=== PATIENT | male | born 1975 | race Two or more races ===

== ENCOUNTER 2024-08-14 11:20 | Inpatient (IN) | payer OTHER ==
[~2024-08-14] VITALS: Ht 188 cm; Wt 112.7 kg
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
[2024-08-14 12:17] LABS: Chloride 102 mmol/L (98-107); Potassium 4.1 mmol/L (3.5-5.1); Sodium 133 mmol/L (136-145)
[2024-08-14 12:18] LABS: Calcium 8.7 mg/dL (8.7-10.4); Carbon Dioxide 25 mmol/L (20-31); Hematocrit 37.8 % (41.0-53.0); Hemoglobin 13.2 g/dL (13.5-17.5); Mean Corpuscular Hemoglobin 33.3 pg (28.0-32.0); Mean Corpuscular Volume 95.3 fL (80.0-100.0); Nucleated Red Blood Cells % 0.2 %
[2024-08-14 12:19] LABS: Anion Gap 6 (5-15)
[2024-08-14 12:23] LABS: BUN/Creatinine Ratio 11.1 (10.0-20.0); Glucose 96 mg/dL (74-106)
[2024-08-14 12:24] LABS: Blood Urea Nitrogen 8 mg/dL (9-23)
[2024-08-14] MEDS: SODIUM CHLORIDE 0.9% 1,000 ML IV ONE (12:33)
[2024-08-14] MEDS: ONDANSETRON HCL 4 MG/2 ML VIAL IV ONE (12:33)
[2024-08-14] MEDS: MORPHINE SULFATE 4 MG/ML SYR/VIAL IV ONE (12:33)
--- NOTE | 2024-08-14 12:55 | DVH ---
CLINICAL INFORMATION: 48 years old, Male; syncope. TECHNIQUE: Axial imaging was obtained through the brain without contrast. Coronal and sagittal reform atted images were obtained, reviewed, and stored. Images were reviewed in brain and bone windows. Al l CT scans at this medical facility are performed using dose modulation techniques as appropriate to a performed exam including the following: Automated exposure control was utilized; adjustment of the MA and/or KV according to patient size; and use of iterative reconstruction technique. CTDIvol = 53.2 9 mGy DLP = 1069.02 mGy-cm COMPARISON: None FINDINGS: There is no acute intracranial hemorrhage. No mass effect or midline shift. The ventricles and sulci are within normal limits in size for age. Basal cisterns are patent. The calvarium is unre markable. Mild mucosal thickening and areas of partial opacification of the paranasal sinuses. Mastoi d air cells are clear. IMPRESSION: 1. No CT evidence of acute intracranial abnormality. 2. Nonacute findings as described above.
--- NOTE | 2024-08-14 13:17 | DVH ---
EXAM: CT CERVICAL WITHOUT CONTRAST HISTORY: syncope COMPARISON: None CTDIvol 22.7 mGy, DLP 1930.5 mGy*cm. TECHNIQUE: Multiple axial CT images of the spine were obtained using bone algorithm. Axial and guerrero l reformatting was done. Bone and soft tissue windows were reviewed. FINDINGS: No evidence of definite acute fracture, spinal dislocation, or significant appearing acute subluxatio n is seen. IMPRESSION: No definite CT evidence of acute fracture or dislocation of the bony cervical spine.
--- NOTE | 2024-08-14 13:21 | DVH ---
EXAM: XY LUMBAR SPINE 3 VIEW CLINICAL INDICATION: LOW BACK PAIN TECHNIQUE: XY LUMBAR SPINE 3 VIEW Comparison: None FINDINGS/IMPRESSION: There is no evidence of acute fracture or dislocation. Postsurgical changes at L4-L5 with intervertebral disc spacers.
[2024-08-14 14:00] LABS: Urine Protein, UAD Negative (Negative)
[2024-08-14 14:14] LABS: Amphetamine Screen, Urine Neg (NEGATIVE); Barbiturate Scree,Urine Neg (NEGATIVE); Benzodiazephine Screen, Urine Neg (NEGATIVE); Cannabinoid Screen, Urine Neg (NEGATIVE); Cocaine Screen, Urine Neg (NEGATIVE); Opiate Scree,Urine Neg (NEGATIVE); Phencyclidine Screen, Urine Neg (NEGATIVE)
[2024-08-14] MEDS ORDERED: NITROGLYCERIN 0.4 MG SL TAB SL PRN (14:45)
[2024-08-14] MEDS: D5W/SOD CHL 0.45% 1,000 ML IV ONE (15:00)
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
--- NOTE | 2024-08-14 18:26 | DVHCONRES ---
Date Seen: Aug 14, 2024 Resident Creating Document: MIHIR DELGADO RESDIENT History of Present Illness This is a 48-year-old inmate male with past medical history hypertension, AFib an hepatitis-B brought to the hospital from long-term due to an episode of syncope. Per patient, he is on methadone since 5 years but recently due to long-term transfer could not feel his medicine and has been feeling dizzy, and lightheadedness since 2 days. Today, the patient was feeling more dizzy, and lightheadedness which subsequently lost consciousness. Upon waking up, he was feeling headache, and had nausea, palpitation and back pain. He denies chest pain, shortness of breaths, cough, fever or any recent sick contact. PMHx: hypertension, AFib (status post AFib in 2020) and hepatitis-C PSHx: Multiple spine surgery due to herniated disc Family history: Noncontributory Social history: Ex-smoker and methamphetamine user Home medication: Diltiazem, losartan, metoprolol and aspirin, previously patient was on Eliquis that has been stopped using 1 year back. Allergic history: No known allergy Patient seen and examined at bedside. Patient is complaining of headache, but does not have active chest pain or shortness of breathe. Allergies: Coded Allergies: NO KNOWN ALLERGIES (Unverified , 08/14/24) Current Medications Current Medications Medications (Trade) Dose Ordered Sig/Paramjit Route PRN Reason Start Time Stop Time Status Last Admin Nitroglycerin (Ntrostat Sublingual) 0.4 mg Q5MINP PRN SL FOR CHEST PAIN 08/14/24 14:45 Morphine Sulfate 2 mg Q30M PRN IV FOR CHEST PAIN 08/14/24 14:45 Tramadol HCl (Ultram) 50 mg TID PO 08/14/24 22:00 Ondansetron HCl (Zofran) 4 mg Q4HPRN PRN IV NAUSEA / VOMITING 08/14/24 17:30 Vital Signs Vital Signs Date Time Temp Pulse Resp B/P (MAP) Pulse Ox O2 Delivery O2 Flow Rate FiO2 08/14/24 16:30 60 13 150/87 (108) 96 08/14/24 12:00 Room Air* 0 21 08/14/24 12:00 97.8 97.8 Physical Exam General Appearance: Alert, Oriented X3, Cooperative, No acute distress HEENT: A small abrasion on the forehead with 2 x 2 cm swelling, PERRLA, EOMI, Mucous membrane moist/pink Respiratory: Clear to auscultation, Normal air movement Cardiovascular: Regular rate, Normal S1, Normal S2, No murmurs, no chest wall tenderness Abdominal: Normal bowel sounds, Soft, No tenderness, No hepatospenomegaly, No masses Extremities: No clubbing, No cyanosis, No edema, Normal pulses, No tenderness/swelling Skin: No rashes, No breakdown, No significant lesion Neuro: Normal gait, Normal speech, Strength at 5/5 X4 ext, Normal tone, Sensation intact, Cranial nerves 3-12 NL, Reflexes 2+ Psych/Mental Status: Mental status NL, Mood NL Labs/Diagnostic Data Labs Test 08/14/24 13:36 08/14/24 12:01 Range/Units Urine Color Light-yellow Yellow Urine Clarity Clear Clear Urine pH 7.0 5.0-9.0 Urine Specific [place] 1.010 1.001-1.035 Urine Protein Negative Negative Urine Ketones Negative Negative Urine Blood Negative Negative /uL Urine Nitrite Negative Negative Urine Bilirubin Negative Negative Urine Urobilinogen Normal Negative mg/dL Urine Leukocyte Esterase Negative Negative /uL Urine RBC <1 0 - 3 /hpf Urine Microscopic WBC < 1 0-3 /HPF Urine Squamous Epithelial Cells None seen <5 /hpf Urine Bacteria None seen None Seen /hpf Urine Glucose Normal Normal mg/dL Urine Opiates Screen Neg NEGATIVE Urine Fentanyl Screen Neg NEGATIVE Urine Barbiturates Screen Neg NEGATIVE Urine Phencyclidine Screen Neg NEGATIVE Urine Amphetamines Screen Neg NEGATIVE Urine Benzodiazepines Screen Neg NEGATIVE Urine Cocaine Screen Neg NEGATIVE Urine Cannabinoids Screen Neg NEGATIVE White Blood Count 3.6 L 4.4-10.8 10^3/uL Red Blood Count 3.97 L 4.5-5.90 10^6/uL Hemoglobin 13.2 L 13.5-17.5 g/dL Hematocrit 37.8 L 41.0-53.0 % Mean Corpuscular Volume 95.3 80.0-100.0 fL Mean Corpuscular Hemoglobin 33.3 H 28.0-32.0 pg Mean Corpuscular Hemoglobin Concent 35.0 32.0-36.0 g/dL Red Cell Distribution Width 13.9 11.8-14.3 % Platelet Count 110 L 140-450 10^3/uL Mean Platelet Volume 8.7 6.9-10.8 fL Neutrophils (%) (Auto) 54.1 37.0-80.0 % Lymphocytes (%) (Auto) 31.5 10.0-50.0 % Monocytes (%) (Auto) 10.8 0.0-12.0 % Eosinophils (%) (Auto) 2.7 0.0-7.0 % Basophils (%) (Auto) 0.9 0.0-2.0 % Neutrophils # (Auto) 2.0 1.6-8.6 10 ^3/uL Lymphocytes # (Auto) 1.1 0.4-5.4 10 ^3/uL Monocytes # (Auto) 0.4 0-1.3 10 ^3/uL Eosinophils # (Auto) 0.1 0-0.8 10 ^3/uL Basophils # (Auto) 0 0-0.2 10 ^3/uL Nucleated Red Blood Cells 0.2 % Sodium Level 133 L 136-145 mmol/L Potassium Level 4.1 3.5-5.1 mmol/L Chloride Level 102 98-107 mmol/L Carbon Dioxide Level 25 20-31 mmol/L Anion Gap 6 5-15 Blood Urea Nitrogen 8 L 9-23 mg/dL Creatinine 0.72 0.700-1.30 mg/dL Glomerular Filtration Rate Calc 111 >90 mL/min BUN/Creatinine Ratio 11.1 10.0-20.0 Serum Glucose 96 74-106 mg/dL Calcium Level 8.7 8.7-10.4 mg/dL Troponin I High Sensitivity 5 </=54 ng/L Assessment Syncope, likely vasovagal History of AFib, status post ablation Hypertension History hepatitis-C virus * EKGs shows normal sinus rhythm with no significant ST or T-wave changes * Trop I is within normal limits * Head CT scan shows no acute intracranial abnormalities Plan/recommendation (Case discussed with Dr. Maher) * Check echocardiogram * Check orthostatic vitals * Resume metoprolol, losartan and has been * In context of normal echocardiogram, the patient does not need for the cardiology workup with the moment * Patient may follow up with Cardiology on outpatient basis for event monitoring * Rest of plan per primary team Thank you for giving us the opportunity to take care of patient. Please call back if you have any question or concern. Plan discussed with: Patient, Other (RN) MIHIR DELGADO RESAURELIANO Aug 14, 2024 18:26
[2024-08-14] MEDS ORDERED: LORazepam 2MG/ML-1ML VIAL IV PRN (18:45)
[2024-08-14] MEDS: LOSARTAN POTASSIUM 50 MG TAB PO ONE (18:57)
[2024-08-14] MEDS: METOPROLOL TARTRATE 50 MG TAB PO SCH (22:00)
[2024-08-14] MEDS: MORPHINE SULFATE INJ 2 MG/ml SYRG IM ONE (23:08)
--- NOTE | 2024-08-14 23:32 | DVHINCON2 ---
Date of service: Aug 14, 2024 Referring Physician Andrew Reason for Consultation Syncope History of Present Illness This is a 48-year-old inmate male with past medical history hypertension, AFib an hepatitis-B brought to the hospital from group home due to an episode of syncope. Per patient, he is on methadone since 5 years but recently due to group home transfer could not feel his medicine and has been feeling dizzy, and lightheadedness since 2 days. Today, the patient was feeling more dizzy, and lightheadedness which subsequently lost consciousness. Upon waking up, he was feeling headache, and had nausea, palpitation and back pain. He denies chest pain, shortness of breaths, cough, fever or any recent sick contact. Patient is complaining of headache, but does not have active chest pain or shortness of breathe. EKGs shows normal sinus rhythm with no significant ST or T-wave changes. Trop I is within normal limits. Head CT scan shows no acute intracranial abnormalities. Patient was admitted to the hospital. I am asked to consult on this patient. Past Medical History hypertension, AFib (status post AFib in 2020) and hepatitis-C Past Surgical History Multiple spine surgery due to herniated disc Allergies: Coded Allergies: NO KNOWN ALLERGIES (Unverified , 08/14/24) Current Medications Current Medications Medications (Trade) Dose Ordered Sig/Paramjit Route PRN Reason Start Time Stop Time Status Last Admin Nitroglycerin (Ntrostat Sublingual) 0.4 mg Q5MINP PRN SL FOR CHEST PAIN 08/14/24 14:45 Morphine Sulfate 2 mg Q30M PRN IV FOR CHEST PAIN 08/14/24 14:45 Tramadol HCl (Ultram) 50 mg TID PO 08/14/24 22:00 08/14/24 22:10 Ondansetron HCl (Zofran) 4 mg Q4HPRN PRN IV NAUSEA / VOMITING 08/14/24 17:30 Metoprolol Tartrate (Lopressor Tablet) 100 mg BID PO 08/14/24 22:00 Losartan Potassium (Cozaar Tablet) 50 mg DAILY PO 08/15/24 10:00 Aspirin 81 mg DAILY PO 08/15/24 10:00 Lorazepam (Ativan Inj) 1 mg ONCE PRN IV MRI 08/14/24 18:45 Vital Signs Vital Signs Date Time Temp Pulse Resp B/P (MAP) Pulse Ox O2 Delivery O2 Flow Rate FiO2 08/14/24 23:08 65 20 131/84 08/14/24 19:35 98.5 98 98.5 08/14/24 12:00 Room Air* 0 21 Physical Exam GENERAL: Alert and oriented x 3. No acute distress. EYES: PERRL, EOMI. Anicteric. HENT: Moist mucous membranes, small abrasion on the forehead with 2 x 2 cm swelling. LUNGS: Clear to auscultation bilaterally. CARDIOVASCULAR: Regular rate and rhythm. ABDOMEN: Soft, non-tender and non-distended. EXTREMITIES: No edema. NEUROLOGIC: No focal neurological deficits. SKIN: Warm, dry. Labs/Diagnostic Data Labs Test 08/14/24 13:36 08/14/24 12:01 Range/Units Urine Color Light-yellow Yellow Urine Clarity Clear Clear Urine pH 7.0 5.0-9.0 Urine Specific [place] 1.010 1.001-1.035 Urine Protein Negative Negative Urine Ketones Negative Negative Urine Blood Negative Negative /uL Urine Nitrite Negative Negative Urine Bilirubin Negative Negative Urine Urobilinogen Normal Negative mg/dL Urine Leukocyte Esterase Negative Negative /uL Urine RBC <1 0 - 3 /hpf Urine Microscopic WBC < 1 0-3 /HPF Urine Squamous Epithelial Cells None seen <5 /hpf Urine Bacteria None seen None Seen /hpf Urine Glucose Normal Normal mg/dL Urine Opiates Screen Neg NEGATIVE Urine Fentanyl Screen Neg NEGATIVE Urine Barbiturates Screen Neg NEGATIVE Urine Phencyclidine Screen Neg NEGATIVE Urine Amphetamines Screen Neg NEGATIVE Urine Benzodiazepines Screen Neg NEGATIVE Urine Cocaine Screen Neg NEGATIVE Urine Cannabinoids Screen Neg NEGATIVE White Blood Count 3.6 L 4.4-10.8 10^3/uL Red Blood Count 3.97 L 4.5-5.90 10^6/uL Hemoglobin 13.2 L 13.5-17.5 g/dL Hematocrit 37.8 L 41.0-53.0 % Mean Corpuscular Volume 95.3 80.0-100.0 fL Mean Corpuscular Hemoglobin 33.3 H 28.0-32.0 pg Mean Corpuscular Hemoglobin Concent 35.0 32.0-36.0 g/dL Red Cell Distribution Width 13.9 11.8-14.3 % Platelet Count 110 L 140-450 10^3/uL Mean Platelet Volume 8.7 6.9-10.8 fL Neutrophils (%) (Auto) 54.1 37.0-80.0 % Lymphocytes (%) (Auto) 31.5 10.0-50.0 % Monocytes (%) (Auto) 10.8 0.0-12.0 % Eosinophils (%) (Auto) 2.7 0.0-7.0 % Basophils (%) (Auto) 0.9 0.0-2.0 % Neutrophils # (Auto) 2.0 1.6-8.6 10 ^3/uL Lymphocytes # (Auto) 1.1 0.4-5.4 10 ^3/uL Monocytes # (Auto) 0.4 0-1.3 10 ^3/uL Eosinophils # (Auto) 0.1 0-0.8 10 ^3/uL Basophils # (Auto) 0 0-0.2 10 ^3/uL Nucleated Red Blood Cells 0.2 % Sodium Level 133 L 136-145 mmol/L Potassium Level 4.1 3.5-5.1 mmol/L Chloride Level 102 98-107 mmol/L Carbon Dioxide Level 25 20-31 mmol/L Anion Gap 6 5-15 Blood Urea Nitrogen 8 L 9-23 mg/dL Creatinine 0.72 0.700-1.30 mg/dL Glomerular Filtration Rate Calc 111 >90 mL/min BUN/Creatinine Ratio 11.1 10.0-20.0 Serum Glucose 96 74-106 mg/dL Calcium Level 8.7 8.7-10.4 mg/dL Troponin I High Sensitivity 5 </=54 ng/L Assessment Syncope, likely vasovagal. History of AFib, status post ablation. Hypertension. History hepatitis-C virus. Plan/Recommendation I agree with your ongoing assessment and care of plan. Patient has been seen by Mg Altamirano, resident on my behalf. We have discussed the plan with the patient. Check echocardiogram. Check orthostatic vitals. Resume metoprolol, losartan and has been. In context of normal echocardiogram, the patient does not need for the cardiology workup with the moment. Patient may follow up with Cardiology on outpatient basis for event monitoring. Rest of plan per primary team. Additional plan as per the hospital course. Plan discussed with: Patient NYHA Physical activity limitations: JHON SIMON MD Aug 14, 2024 23:32
[2024-08-15] VITALS (9 sets, daily range): BP systolic 103–132; BP diastolic 63–81; PULSE 54–82; RESP 16–20; TEMP 97.6–98.7; O2SAT 97–100
[2024-08-15] MEDS: ONDANSETRON HCL 4 MG/2 ML VIAL IV PRN (08:19)
[2024-08-15] MEDS: MORPHINE SULFATE INJ 2 MG/ml SYRG IV PRN (08:21)
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
[2024-08-15] MEDS: LOSARTAN POTASSIUM 50 MG TAB PO SCH (10:09)
--- NOTE | 2024-08-15 10:59 | DVHPN2 ---
Progress Note Date Seen: Aug 15, 2024 Resident Creating Document: MIHIR DELGADO HOLLY Has the PT tested + for MRSA If YES, has PT been informed?: No Medical Necessity Reason Pt with a Central, PICC or Fol: No Subjective Review of Systems Patient seen and examined at the bedside. Patient is feeling better since admission does not have active complaint. Patient reports: No new complaints, Feels better Changes from previous H/P or p: Changes Objective vital signs Vital Sign Date Time Temp Pulse Resp B/P (MAP) Pulse Ox O2 Delivery O2 Flow Rate FiO2 08/15/24 10:09 109/56 08/15/24 10:00 71 08/15/24 08:51 16 08/15/24 08:11 97.6 100 97.6 08/15/24 05:04 Room Air* 0 21 Total Intake and Output 08/14/24 08/14/24 08/15/24 15:00 23:00 07:00 Intake Total 1000 ml 450 ml Balance 1000 ml 450 ml medications Current Medications Medications Dose Ordered Sig/Paramjit Route Start Time Stop Time Status Last Admin Dose Admin Nitroglycerin 0.4 mg Q5MINP PRN SL 08/14/24 14:45 Morphine Sulfate 2 mg Q30M PRN IV 08/14/24 14:45 08/15/24 08:21 2 MG Tramadol HCl 50 mg TID PO 08/14/24 22:00 08/15/24 06:16 50 MG Ondansetron HCl 4 mg Q4HPRN PRN IV 08/14/24 17:30 08/15/24 08:19 4 MG Metoprolol Tartrate 100 mg BID PO 08/14/24 22:00 Losartan Potassium 50 mg DAILY PO 08/15/24 10:00 08/15/24 10:09 50 MG Aspirin 81 mg DAILY PO 08/15/24 10:00 08/15/24 08:24 81 MG Lorazepam 1 mg ONCE PRN IV 08/14/24 18:45 Examination General Appearance: Alert, Oriented X3, Cooperative, No acute distress HEENT: Atraumatic, PERRLA, EOMI, Mucous membrane moist/pink Respiratory: Clear to auscultation, Normal air movement Cardiovascular: Regular rate, Normal S1, Normal S2, No murmurs, no chest wall tenderness Abdominal: Normal bowel sounds, Soft, No tenderness, No hepatospenomegaly, No masses Extremities: No clubbing, No cyanosis, No edema, Normal pulses, No tenderness/swelling Skin: No rashes, No breakdown, No significant lesion Neuro: Normal gait, Normal speech, Strength at 5/5 X4 ext, Normal tone, Sensation intact, Cranial nerves 3-12 NL, Reflexes 2+ Psych/Mental Status: Mental status NL, Mood NL laboratory and microbiology Laboratory Tests 08/14/24 12:01 Test 08/14/24 12:01 Range/Units Serum Glucose 96 74-106 mg/dL Labs and/or images reviewed: Labs reviewed by me, Image(s) reviewed by me Problem List/Assessment/Plan Problem List/Assessment/Plan Syncope, likely vasovagal History of AFib, status post ablation Hypertension History hepatitis-C virus * EKGs shows normal sinus rhythm with no significant ST or T-wave changes * Trop I is within normal limits * Head CT scan shows no acute intracranial abnormalities Plan/recommendation (Case discussed with Dr. Maher) * Resume metoprolol, losartan and has been * In context of normal echocardiogram, the patient does not need further cardiology workup at the moment * Patient may follow up with Cardiology on outpatient basis for event monitoring * We sign of the patient, Rest of plan per primary team Thank you for giving us the opportunity to take care of patient. Please call back if you have any question or concern. Plan discussed with: Patient, Other (RN) My Orders My Orders Orders - MIHIR DELGADO Procedure Category Date Status Time Metoprolol Tartrate PHA 08/14/24 In Process Tablet (Lopressor Ta 22:00 Losartan Tablet PHA 08/15/24 In Process (Cozaar Tablet) 10:00 Aspirin Tablet PHA 08/15/24 In Process 10:00 Orthostatic Vital ORDERS 08/14/24 Transmitted Signs 18:29 Echo 2d Mode Cardiac US 08/15/24 Taken DOP 18:27 MIHIR DELGADO Aug 15, 2024 10:59
[2024-08-15] MEDS ORDERED: METHADONE HCL 10 MG TAB PO SCH (13:00)
[2024-08-15] MEDS: METHADONE HCL 10 MG TAB PO SCH (13:50)
--- NOTE | 2024-08-15 17:52 | DVHHP2 ---
History of Present Illness Reason for Visit: Syncope History of Present Illness This is a 48-year-old inmate male with past medical history hypertension, AFib an hepatitis-B [facility] the [facility] from [facility] due to an episode of syncope. Per patient, he is on methadone since 5 years but recently due to [facility] transfer could not feel his medicine and has been feeling dizzy, and lightheadedness since 2 days. Today, the patient was feeling more dizzy, and lightheadedness which subsequently lost consciousness. Upon waking up, he was feeling headache, and had nausea, palpitation and back pain. He denies chest pain, shortness of breaths, cough, fever or any recent sick contact. Patient is complaining of headache, but does not have active chest pain or shortness of breathe. EKGs shows normal sinus rhythm with no significant ST or T-wave changes. Trop I is within normal limits. Head CT scan shows no acute intracranial abnormalities. Patient was admitted to the hospital for further workup and care. Past Medical History See HPI Review of Systems Constitutional: No: Fever, Chills, Sweats, Weakness, Malaise, Other Eyes: No: Pain, Vision change, Conjunctivae inflammation, Eyelid inflammation, Other, Redness ENT: No: Ear pain, Ear discharge, Nose pain, Nose discharge, Nose congestion, Mouth pain, Mouth swelling, Throat pain, Throat swelling, Other Respiratory: No: Cough, Dry, Shortness of breath, SOB with excertion, Wheezing, Hemoptysis, Pleuritic Pain, Sputum, Wheezing, Other Cardiovascular: No: Chest Pain, Palpitations, Orthopnea, Paroxysmal Noc. Dyspnea, Edema, Lt Headedness, Other Gastrointestinal: No: Nausea, Vomiting, Abdominal Pain, Diarrhea, Constipation, Melena, Hematochezia, Other Genitourinary: No Dysuria, No Frequency, No Incontinence, No Hematuria, No Retention, No Other Musculoskeletal: No: other, neck pain, shoulder pain, arm pain, back pain, hand pain, leg pain, foot pain Skin: No: Rash, Lesions, Jaundice, Bruising, Other Neurological: Weakness Allergies: Coded Allergies: NO KNOWN ALLERGIES (Unverified , 08/14/24) Medications Current Medications Medications Dose Ordered Sig/Paramjit Route Start Time Stop Time Status Last Admin Dose Admin Nitroglycerin 0.4 mg Q5MINP PRN SL 08/14/24 14:45 Morphine Sulfate 2 mg Q30M PRN IV 08/14/24 14:45 08/15/24 08:21 2 MG Tramadol HCl 50 mg TID PO 08/14/24 22:00 08/15/24 13:02 50 MG Ondansetron HCl 4 mg Q4HPRN PRN IV 08/14/24 17:30 08/15/24 08:19 4 MG Metoprolol Tartrate 100 mg BID PO 08/14/24 22:00 Losartan Potassium 50 mg DAILY PO 08/15/24 10:00 08/15/24 10:09 50 MG Aspirin 81 mg DAILY PO 08/15/24 10:00 08/15/24 08:24 81 MG Lorazepam 1 mg ONCE PRN IV 08/14/24 18:45 Methadone HCl 20 mg DAILY PO 08/15/24 13:30 08/15/24 13:50 20 MG Exam Vital Signs Vital Signs Date Time Temp Pulse Resp B/P (MAP) Pulse Ox O2 Delivery O2 Flow Rate FiO2 08/15/24 16:45 98.4 54 16 132/76 (94) 100 98.4 08/15/24 08:00 Room Air* 0 21 General Appearance: Alert, Oriented X3, Cooperative, No acute distress Respiratory: Clear to auscultation Cardiovascular: Regular rate, Normal S1, Normal S2 Abdominal: Normal bowel sounds, Soft Neuro: Strength at 5/5 X4 ext, Cranial nerves 3-12 NL Labs/Xrays Labs Test 08/14/24 13:36 08/14/24 12:01 Range/Units Urine Color Light-yellow Yellow Urine Clarity Clear Clear Urine pH 7.0 5.0-9.0 Urine Specific [place] 1.010 1.001-1.035 Urine Protein Negative Negative Urine Ketones Negative Negative Urine Blood Negative Negative /uL Urine Nitrite Negative Negative Urine Bilirubin Negative Negative Urine Urobilinogen Normal Negative mg/dL Urine Leukocyte Esterase Negative Negative /uL Urine RBC <1 0 - 3 /hpf Urine Microscopic WBC < 1 0-3 /HPF Urine Squamous Epithelial Cells None seen <5 /hpf Urine Bacteria None seen None Seen /hpf Urine Glucose Normal Normal mg/dL Urine Opiates Screen Neg NEGATIVE Urine Fentanyl Screen Neg NEGATIVE Urine Barbiturates Screen Neg NEGATIVE Urine Phencyclidine Screen Neg NEGATIVE Urine Amphetamines Screen Neg NEGATIVE Urine Benzodiazepines Screen Neg NEGATIVE Urine Cocaine Screen Neg NEGATIVE Urine Cannabinoids Screen Neg NEGATIVE White Blood Count 3.6 L 4.4-10.8 10^3/uL Red Blood Count 3.97 L 4.5-5.90 10^6/uL Hemoglobin 13.2 L 13.5-17.5 g/dL Hematocrit 37.8 L 41.0-53.0 % Mean Corpuscular Volume 95.3 80.0-100.0 fL Mean Corpuscular Hemoglobin 33.3 H 28.0-32.0 pg Mean Corpuscular Hemoglobin Concent 35.0 32.0-36.0 g/dL Red Cell Distribution Width 13.9 11.8-14.3 % Platelet Count 110 L 140-450 10^3/uL Mean Platelet Volume 8.7 6.9-10.8 fL Neutrophils (%) (Auto) 54.1 37.0-80.0 % Lymphocytes (%) (Auto) 31.5 10.0-50.0 % Monocytes (%) (Auto) 10.8 0.0-12.0 % Eosinophils (%) (Auto) 2.7 0.0-7.0 % Basophils (%) (Auto) 0.9 0.0-2.0 % Neutrophils # (Auto) 2.0 1.6-8.6 10 ^3/uL Lymphocytes # (Auto) 1.1 0.4-5.4 10 ^3/uL Monocytes # (Auto) 0.4 0-1.3 10 ^3/uL Eosinophils # (Auto) 0.1 0-0.8 10 ^3/uL Basophils # (Auto) 0 0-0.2 10 ^3/uL Nucleated Red Blood Cells 0.2 % Sodium Level 133 L 136-145 mmol/L Potassium Level 4.1 3.5-5.1 mmol/L Chloride Level 102 98-107 mmol/L Carbon Dioxide Level 25 20-31 mmol/L Anion Gap 6 5-15 Blood Urea Nitrogen 8 L 9-23 mg/dL Creatinine 0.72 0.700-1.30 mg/dL Glomerular Filtration Rate Calc 111 >90 mL/min BUN/Creatinine Ratio 11.1 10.0-20.0 Serum Glucose 96 74-106 mg/dL Calcium Level 8.7 8.7-10.4 mg/dL Troponin I High Sensitivity 5 </=54 ng/L Assessment/Plan Assessment/Plan Syncope, likely vasovagal vs Methadone Withdrawal History of AFib, status post ablation - Cardio Cx Chronic Back Pain Hypertension- Monitor and adjust meds as needed History hepatitis-C virus Plan discussed with: Patient My Orders Orders - OSCAR DON MD Procedure Category Date Status Time Methadone Hcl Tablet PHA 08/15/24 In Process (Methadone Hcl Tabl 13:30 Date of Service: Aug 15, 2024 Billing Provider: OSCAR DON MD Common Visit Codes: [id number] INP/OBS CARE(HIGH) OSCAR DON MD Aug 15, 2024 17:52
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
--- NOTE | 2024-08-15 22:27 | DVHPN2 ---
Progress Note - Dictate Date Seen: Aug 15, 2024 Has the PT tested + for MRSA If YES, has PT been informed?: No Medical Necessity Reason Pt with a Central, PICC or Fol: No Subjective Patient was seen and evaluated in follow up. Patient reports feeling well today. No active complaints. Patient is refusing to undergo EEG. Left femur x-ray shows intramedullary gavin in the left femur. Shrapnel in the subcutaneous tissue. Telemetry reviewed. vital signs Vital Sign Date Time Temp Pulse Resp B/P (MAP) Pulse Ox O2 Delivery O2 Flow Rate FiO2 08/15/24 12:03 98.2 63 17 103/63 (76) 98 98.2 08/15/24 08:00 Room Air* 0 21 Total Intake and Output 08/14/24 08/14/24 08/15/24 15:00 23:00 07:00 Intake Total 1000 ml 450 ml Balance 1000 ml 450 ml medications Current Medications Medications Dose Ordered Sig/Paramjit Route Start Time Stop Time Status Last Admin Dose Admin Nitroglycerin 0.4 mg Q5MINP PRN SL 08/14/24 14:45 Morphine Sulfate 2 mg Q30M PRN IV 08/14/24 14:45 08/15/24 08:21 2 MG Tramadol HCl 50 mg TID PO 08/14/24 22:00 08/15/24 13:02 50 MG Ondansetron HCl 4 mg Q4HPRN PRN IV 08/14/24 17:30 08/15/24 08:19 4 MG Metoprolol Tartrate 100 mg BID PO 08/14/24 22:00 Losartan Potassium 50 mg DAILY PO 08/15/24 10:00 08/15/24 10:09 50 MG Aspirin 81 mg DAILY PO 08/15/24 10:00 08/15/24 08:24 81 MG Lorazepam 1 mg ONCE PRN IV 08/14/24 18:45 Methadone HCl 20 mg DAILY PO 08/15/24 13:30 08/15/24 13:50 20 MG objective GENERAL: Alert and oriented x 3. No acute distress. EYES: PERRL, EOMI. Anicteric. HENT: Moist mucous membranes, small abrasion on the forehead with 2 x 2 cm swelling. LUNGS: Clear to auscultation bilaterally. CARDIOVASCULAR: Regular rate and rhythm. ABDOMEN: Soft, non-tender and non-distended. EXTREMITIES: No edema. NEUROLOGIC: No focal neurological deficits. SKIN: Warm, dry. laboratory and microbiology Laboratory Tests 08/14/24 12:01 Test 08/14/24 12:01 Range/Units Serum Glucose 96 74-106 mg/dL Problem List Syncope, likely vasovagal. History of AFib, status post ablation. Hypertension. History hepatitis-C virus. Assessment/Plan Continued all current supportive medical care. Patient has been seen by Mg Altamirano, resident on my behalf. We have discussed the plan with the patient. Resume metoprolol, losartan and has been. In context of normal echocardiogram, the patient does not need further cardiology workup at the moment. Patient may follow up with Cardiology on outpatient basis for event monitoring. Additional plan as per the hospital course. Plan discussed with: Patient JHON KHALIL MD Aug 15, 2024 15:43
[2024-08-16 00:54] VITALS: BP 102/58; PULSE 54; RESP 18; TEMP 97.8; O2SAT 99
[2024-08-16 05:12] VITALS: BP 99/60; PULSE 46; RESP 18; TEMP 97.6; O2SAT 98
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
[2024-08-16 07:53] VITALS: BP 117/72
--- NOTE | 2024-08-16 12:30 | DVHPN2 ---
Progress Note - Dictate Date Seen: Aug 16, 2024 Has the PT tested + for MRSA If YES, has PT been informed?: No Medical Necessity Reason Pt with a Central, PICC or Fol: No Subjective Patient was seen and evaluated in follow up. Patient has no new complaints at this time. Patient denies any cardiac symptoms. Patient is cardiac stable for discharge. Telemetry reviewed. vital signs Vital Sign Date Time Temp Pulse Resp B/P (MAP) Pulse Ox O2 Delivery O2 Flow Rate FiO2 08/16/24 08:10 133/82 08/16/24 08:10 60 08/16/24 05:12 97.6 18 98 97.6 08/15/24 20:00 Room Air* 0 21 Total Intake and Output 08/15/24 08/15/24 08/16/24 15:00 23:00 07:00 Intake Total 120 ml 1620 ml 800 ml Output Total 1350 ml 2500 ml Balance 120 ml 270 ml -1700 ml objective GENERAL: Alert and oriented x 3. No acute distress. EYES: PERRL, EOMI. Anicteric. HENT: Moist mucous membranes, small abrasion on the forehead with 2 x 2 cm swelling. LUNGS: Clear to auscultation bilaterally. CARDIOVASCULAR: Regular rate and rhythm. ABDOMEN: Soft, non-tender and non-distended. EXTREMITIES: No edema. NEUROLOGIC: No focal neurological deficits. SKIN: Warm, dry. laboratory and microbiology Laboratory Tests 08/14/24 12:01 Test 08/14/24 12:01 Range/Units Serum Glucose 96 74-106 mg/dL Problem List Syncope, likely vasovagal. History of AFib, status post ablation. Hypertension. History hepatitis-C virus. Assessment/Plan Continued all current supportive medical care. Aspirin. Metoprolol. Losartan. Nitro SL. Morphine for pain management. Additional plan as per the hospital course. Plan discussed with: Patient JHON KHALIL MD Aug 16, 2024 12:24
--- NOTE | 2024-08-16 14:55 | ECG ---
[facility] Test Date: 2024-08-14 Test Time: 11:42:33 Pat Name: ELIEZER CORADO Department: ED Room: 0208T A Gender: M Ciaio Lumite Injector: : 1975 Requested By: OCTAVIA MAI Order Number: [id number] Reading MD: Bowen Horvath Measurements Intervals [place] Rate: 64 P: 75 NH: 165 QRS: 64 QRSD: 95 T: 55 QT: 420 QTc: 434 Interpretive Statements Sinus rhythm Electronically Signed On 08-17-2024 9:48:28 PDT by Bowen Horvath Please click the below link to view image of tracing.
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
== END 2024-08-16 08:05 | DRG 641 ==
LOC: EDBD 11:20 → ER 11:20 → OVERFLOW 14:43 → EEVIPCON 14:43 → TELE-CENTR 21:12
PROVIDERS: ADMIT Internal Medicine; ATTEND Internal Medicine
DX: E86.0 Dehydration (principal); F11.23 Opioid dependence with withdrawal; M54.18 Radiculopathy, sacral and sacrococcygeal region; I10 Essential (primary) hypertension; G89.29 Other chronic pain; M54.50 Low back pain, unspecified; F15.10 Other stimulant abuse, uncomplicated; I48.91 Unspecified atrial fibrillation; G90.9 Disorder of the autonomic nervous system, unspecified; Z82.5 Family history of asthma and other chronic lower respiratory diseases; Z82.49 Family history of ischemic heart disease and other diseases of the circulatory system
CPT/HCPCS: 36415; 70450; 72100; 72125; 80048; 80307; 81001; 84484; 85025; 93005; 93306; 96361; 96374; 96375; 99291; G0378; J2405